=== PATIENT | female | born 1950 | race Caucasian/White ===

== ENCOUNTER 2023-06-15 08:00 | Outpatient (RCR) | payer MEDICARE, SELFPAY | END 2023-08-18 09:50 | disposition home or self-care (01) | PROVIDERS: PCP Family Medicine; Visit Provider Family Medicine | DX: R29.6 Repeated falls (principal); Z51.89 Encounter for other specified aftercare; W19.XXXA Unspecified fall, initial encounter | CPT/HCPCS: 97110; 97112; 97162 ==